=== PATIENT | female | born 1985 | race Two or more races ===

== ENCOUNTER 2025-03-16 15:11 | Emergency (ER) | payer OTHER ==
[~2025-03-16] VITALS: Ht 154.9 cm; Wt 49.9 kg
[2025-03-16] MEDS ORDERED: ONDANSETRON HCL 2 MG/ML VIAL IV ONE (17:45)
[2025-03-16] MEDS ORDERED: 0.9 % SODIUM CHLORIDE 1,000 ML IV ONE (17:45)
[2025-03-16] MEDS ORDERED: ONDANSETRON HCL 2 MG/ML VIAL ONE (19:21)
[2025-03-16 19:26] LABS: BASO % 0.2 % (0.1-1.2); EOS # 0.00 (0.04-0.54); EOS % 0.0 % (0.7-7.0); LYMPH # 1.83 (1.18-3.74); LYMPH % 9.4 % (19.3-53.1); MEAN PLATELET VOLUME 11.40 fl (9.4-12.4); MONO # 1.59 (0.24-0.82); MONO % 8.2 % (4.7-12.5); NEUT # 15.94 (1.56-6.13); NEUT % 81.7 % (34.0-71.1); RED CELL DISTRIBUTION WIDTH 14.0 % (11.6-14.4)
[2025-03-16 21:17] LABS: ALT/SGPT 25.0 U/L (12-78); AST/SGOT 15.0 U/L (15-37); BILIRUBIN TOTAL 0.94 mg/dL (0.3-1.2); BUN CREA RATIO 20.0 (7.0-25.0); CREATININE SERUM 0.61 mg/dL (0.55-1.02); GFR 109.77; GLOBULINA 2.7 G/DL (2.4-3.5); GLUCOSE FASTING 108.0 mg/dL (65-100); OSMOLALITY SERUM 282.0 MOSM/KG (275-295)
[2025-03-16] MEDS ORDERED: MORPHINE SULFATE 2 MG/ML SYRINGE IV ONE (23:00)
[2025-03-17 02:40] LABS: BASO % 0.2 % (0.1-1.2); EOS # 0.03 (0.04-0.54); EOS % 0.3 % (0.7-7.0); LYMPH # 2.71 (1.18-3.74); LYMPH % 23.0 % (19.3-53.1); MEAN PLATELET VOLUME 10.30 fl (9.4-12.4); MONO # 1.11 (0.24-0.82); MONO % 9.4 % (4.7-12.5); NEUT # 7.87 (1.56-6.13); NEUT % 66.8 % (34.0-71.1); RED CELL DISTRIBUTION WIDTH 12.9 % (11.6-14.4)
[2025-03-17] MEDS ORDERED: ONDANSETRON ODT8 MG PO (04:07)
[2025-03-17] MEDS ORDERED: TRANSDERM-SCOP1 EACH TD (04:07)
[2025-03-18] MEDS ORDERED: PEPCID AC20 MG PO (13:14)
[2025-03-18] MEDS ORDERED: ZOFRAN8 MG PO (13:14)
[2025-03-18] MEDS ORDERED: PROTONIX40 MG PO (13:14)
[2025-03-18] MEDS ORDERED: KLOR-CON M2020 MEQ PO (13:20)
== END 2025-03-17 04:50 | disposition home or self-care (01) ==
LOC: ER 15:12
PROVIDERS: Preventive Medicine Public Health & General Preventive Medicine
DX: N80.9 Endometriosis, unspecified (principal)

== ENCOUNTER 2025-03-17 10:46 | Emergency (ER) | payer OTHER ==
[~2025-03-17] VITALS: Ht 154.9 cm; Wt 49.9 kg
[~2025-03-17 10:46] MED LIST: ONDANSETRON ODT8 MG PO; TRANSDERM-SCOP1 EACH TD
[2025-03-17] MEDS ORDERED: PANTOPRAZOLE SODIUM 40 MG/VIAL VIAL IV PUSH STA (11:48)
[2025-03-17] MEDS ORDERED: ONDANSETRON HCL 2 MG/ML VIAL IV STA (11:49)
[2025-03-17] MEDS ORDERED: RINGERS SOLUTION,LACTATED 1,000 ML IV STA (11:49)
[2025-03-17] MEDS ORDERED: MORPHINE SULFATE 4 MG/ML CARTRIDGE IV STA (11:49)
[2025-03-17] MEDS ORDERED: ONDANSETRON HCL 2 MG/ML VIAL ONE ×2 (11:52→11:55)
[2025-03-17 12:22] LABS: BASO % 0.1 % (0.1-1.2); EOS # 0.01 (0.04-0.54); EOS % 0.1 % (0.7-7.0); LYMPH # 1.63 (1.18-3.74); LYMPH % 16.2 % (19.3-53.1); MEAN PLATELET VOLUME 10.60 fl (9.4-12.4); MONO # 0.78 (0.24-0.82); MONO % 7.8 % (4.7-12.5); NEUT # 7.62 (1.56-6.13); NEUT % 75.7 % (34.0-71.1); RED CELL DISTRIBUTION WIDTH 12.8 % (11.6-14.4)
[2025-03-17 12:56] LABS: ALT/SGPT 26.0 U/L (12-78); AST/SGOT 18.0 U/L (15-37); BILIRUBIN TOTAL 1.06 mg/dL (0.3-1.2); BUN CREA RATIO 16.0 (7.0-25.0); CREATININE SERUM 0.75 mg/dL (0.55-1.02); GFR 86.48; GLOBULINA 3.1 G/DL (2.4-3.5); GLUCOSE FASTING 110.0 mg/dL (65-100); OSMOLALITY SERUM 282.0 MOSM/KG (275-295)
[2025-03-17] MEDS ORDERED: POTASSIUM CHLORIDE IN WATER 40 MEQ/100 ML PIGGYBAG IV STA (13:08)
[2025-03-17] MEDS ORDERED: FAMOTIDINE/PF 20 MG/2 ML VIAL IV ONE (18:45)
[2025-03-17] MEDS ORDERED: PROMETHAZINE HCL 25 MG/ML AMPUL IM ONE (18:45)
[2025-03-17] MEDS ORDERED: PROMETHAZINE HCL 25 MG/ML AMPUL ONE (19:02)
[2025-03-17] MEDS ORDERED: FAMOTIDINE/PF 20 MG/2 ML VIAL ONE (19:03)
[2025-03-17] MEDS ORDERED: MORPHINE SULFATE 4 MG/ML CARTRIDGE IV ONE (20:45)
[2025-03-18 01:06] LABS: URINE APPEARANCE Turbid; URINE BILIRRUBIN Negative (NEGATIVE); URINE BLOOD Large; URINE COLOR Dark Yellow; URINE GLUCOSE Negative (NEGATIVE); URINE LEUKOCYTE Trace; URINE NITRATE Negative; URINE PROTEIN 30 (NEGATIVE); URINE UROBILINOGEN 1.0 E.U./dl
[2025-03-18 01:10] LABS: URINE BACTERIA 180.0 uL (0.0-1933); URINE CAST 1.46 uL (0.0-1.40); URINE EPITHELIAL CELLS 52.6 uL (0.0-38.8); URINE RBC 1688.5 uL (0.0-20.8); URINE WBC 53.8 uL (0.0-23.2)
[2025-03-18 01:42] LABS: URINE CRYSTALS MANY /HPF; URINE KETONE 40 (NEGATIVE)
[2025-03-18] MEDS ORDERED: MORPHINE SULFATE 4 MG/ML CARTRIDGE IV STA (07:29)
[2025-03-18] MEDS ORDERED: ONDANSETRON HCL 2 MG/ML VIAL ONE (07:59)
[2025-03-18 12:34] LABS: BUN CREA RATIO 22.0 (7.0-25.0); CREATININE SERUM 0.68 mg/dL (0.55-1.02); GFR 96.83; GLUCOSE FASTING 80.0 mg/dL (65-100); OSMOLALITY SERUM 288.0 MOSM/KG (275-295)
[2025-03-18] MEDS ORDERED: ZOFRAN8 MG PO (13:14)
[2025-03-18] MEDS ORDERED: PEPCID AC20 MG PO (13:14)
[2025-03-18] MEDS ORDERED: PROTONIX40 MG PO (13:14)
[2025-03-18] MEDS ORDERED: MORPHINE SULFATE 2 MG/ML SYRINGE IV ONE (13:15)
[2025-03-18] MEDS ORDERED: KLOR-CON M2020 MEQ PO (13:20)
[2025-03-18] MEDS ORDERED: DEXTROSE 50 % IN WATER 0.5 G/ML VIAL IV ONE ×2 (13:45→14:00)
== END 2025-03-18 15:28 | disposition home or self-care (01) ==
LOC: ER 10:46
PROVIDERS: General Practice
DX: R11.2 Nausea with vomiting, unspecified (principal); R10.9 Unspecified abdominal pain; N80.8 Other endometriosis; K29.70 Gastritis, unspecified, without bleeding

== ENCOUNTER 2025-05-11 07:45 | Inpatient (IN) | payer OTHER ==
[~2025-05-11] VITALS: Ht 154.9 cm; Wt 52.2 kg
[~2025-05-11 07:45] MED LIST changes: +KLOR-CON M2020 MEQ PO; +PEPCID AC20 MG PO; +PROTONIX40 MG PO; +ZOFRAN8 MG PO
[2025-05-12] MEDS ORDERED: NORETHIND-ETH1 EAC1 PO (12:37)
[2025-05-12] MEDS ORDERED: TRAZODONE HCL150 MG PO (12:37)
[2025-05-12 13:19] VITALS: BP 97/60
[2025-05-24] MEDS ORDERED: POVIDONE-IODINE 118 ML BOTT TOP ONE (06:57)
[2025-05-24] MEDS ORDERED: VISTASEAL DUAL APPICATOR 1 EACH APPL TOP ONE (06:57)
[2025-05-24] MEDS ORDERED: THROMBIN,HU/FIBRINOGEN/CALCIUM 10 ML SYRINGE TOP ONE (07:02)
[2025-05-24] MEDS ORDERED: CEFTRIAXONE SODIUM 2,000 MG VIAL IV ONE (09:00)
[2025-05-24] MEDS ORDERED: METRONIDAZOLE/SODIUM CHLORIDE 500 MG/100 ML PIGGYBACK IV ONE (09:00)
[2025-05-24] MEDS ORDERED: SUGAMMADEX SODIUM 200 MG/2 ML VIAL IV ONE (10:39)
[2025-05-24] MEDS ORDERED: KETOROLAC TROMETHAMINE 30 MG VIAL ONE (11:30)
[2025-05-24] MEDS ORDERED: ONDANSETRON HCL 2 MG/ML VIAL IV SCH (12:00)
[2025-05-24] MEDS ORDERED: ACETAMINOPHEN 325 MG TABLET PO SCH (12:00)
[2025-05-24] MEDS ORDERED: KETOROLAC TROMETHAMINE 30 MG VIAL IV SCH (12:00)
[2025-05-24] MEDS ORDERED: RINGERS SOLUTION,LACTATED 1,000 ML IV SCH (13:00)
[2025-05-24] MEDS ORDERED: GABAPENTIN 100 MG CAPSULE PO SCH (13:00)
[2025-05-24 13:10] LABS: BASO % 0.2 % (0.1-1.2); EOS # 0.01 (0.04-0.54); EOS % 0.1 % (0.7-7.0); LYMPH # 1.26 (1.18-3.74); LYMPH % 9.0 % (19.3-53.1); MEAN PLATELET VOLUME 10.40 fl (9.4-12.4); MONO # 0.69 (0.24-0.82); MONO % 5.0 % (4.7-12.5); NEUT # 11.89 (1.56-6.13); NEUT % 85.3 % (34.0-71.1); RED CELL DISTRIBUTION WIDTH 12.6 % (11.6-14.4)
[2025-05-24] MEDS ORDERED: ONDANSETRON HCL 2 MG/ML VIAL ONE (13:54)
[2025-05-24] MEDS ORDERED: ONDANSETRON HCL 2 MG/ML VIAL IV ONE (14:00)
[2025-05-24] MEDS ORDERED: MORPHINE SULFATE 4 MG/ML CARTRIDGE IV ONE (14:30)
[2025-05-24] MEDS ORDERED: ACETAMINOPHEN 325 MG TABLET PO ONE (15:27)
[2025-05-24] MEDS ORDERED: GABAPENTIN 100 MG CAPSULE PO ONE (15:27)
[2025-05-24 16:20] VITALS: BP 97/60
[2025-05-24 17:55] LABS: BASO % 0.2 % (0.1-1.2); EOS # 0.02 (0.04-0.54); EOS % 0.2 % (0.7-7.0); LYMPH # 1.87 (1.18-3.74); LYMPH % 14.6 % (19.3-53.1); MEAN PLATELET VOLUME 10.80 fl (9.4-12.4); MONO # 0.84 (0.24-0.82); MONO % 6.5 % (4.7-12.5); NEUT # 10.04 (1.56-6.13); NEUT % 78.2 % (34.0-71.1); RED CELL DISTRIBUTION WIDTH 12.6 % (11.6-14.4)
[2025-05-24 18:27] LABS: BUN CREA RATIO 15.0 (7.0-25.0); CREATININE SERUM 0.75 mg/dL (0.55-1.02); GFR 86.48; GLUCOSE FASTING 72.0 mg/dL (65-100); OSMOLALITY SERUM 285.0 MOSM/KG (275-295)
[2025-05-24] MEDS ORDERED: METOCLOPRAMIDE HCL 5 MG/ML VIAL IV PRN (20:00)
[2025-05-25 00:09] VITALS: BP 90/60
[2025-05-25 07:10] LABS: BASO % 0.3 % (0.1-1.2); EOS # 0.06 (0.04-0.54); EOS % 0.9 % (0.7-7.0); LYMPH # 1.64 (1.18-3.74); LYMPH % 23.4 % (19.3-53.1); MEAN PLATELET VOLUME 10.80 fl (9.4-12.4); MONO # 0.51 (0.24-0.82); MONO % 7.3 % (4.7-12.5); NEUT # 4.76 (1.56-6.13); NEUT % 68.0 % (34.0-71.1); RED CELL DISTRIBUTION WIDTH 12.8 % (11.6-14.4)
[2025-05-25 07:40] LABS: BUN CREA RATIO 12.0 (7.0-25.0); CREATININE SERUM 0.52 mg/dL (0.55-1.02); GFR 131.97; GLUCOSE FASTING 81.0 mg/dL (65-100); OSMOLALITY SERUM 283.0 MOSM/KG (275-295)
[2025-05-25 08:00] VITALS: BP 95/61
[2025-05-25] MEDS ORDERED: PATIENTS OWN MEDICATION (MEDICAMENTO EN PISO) PO SCH (09:00)
[2025-05-25 12:34] LABS: BASO % 0.3 % (0.1-1.2); EOS # 0.07 (0.04-0.54); EOS % 1.0 % (0.7-7.0); LYMPH # 1.77 (1.18-3.74); LYMPH % 24.1 % (19.3-53.1); MEAN PLATELET VOLUME 10.20 fl (9.4-12.4); MONO # 0.52 (0.24-0.82); MONO % 7.1 % (4.7-12.5); NEUT # 4.95 (1.56-6.13); NEUT % 67.4 % (34.0-71.1); RED CELL DISTRIBUTION WIDTH 12.7 % (11.6-14.4)
== END 2025-05-25 16:29 | disposition home or self-care (01) | DRG 743 ==
LOC: O/R 05-24 07:00 → SURG 05-24 07:00 → OB/GYN 05-24 13:27
PROVIDERS: Student in an Organized Health Care Education/Training Program; Surgery; Urology; ADMIT Obstetrics & Gynecology Gynecology; ATTEND Obstetrics & Gynecology Gynecology
PROC: 0DTJ4ZZ Resection of Appendix, Percutaneous Endoscopic Approach (ICD-10-PCS; 2025-05-24)
PROC: 4A1BXSH Monitoring of Gastrointestinal Vascular Perfusion using Indocyanine Green Dye, External Approach (ICD-10-PCS; 2025-05-24)
PROC: 0TJB8ZZ Inspection of Bladder, Via Natural or Artificial Opening Endoscopic (ICD-10-PCS; 2025-05-24)
PROC: 0UT94ZZ Resection of Uterus, Percutaneous Endoscopic Approach (ICD-10-PCS; principal; 2025-05-24 07:00)
PROC: 0UT54ZZ Resection of Right Fallopian Tube, Percutaneous Endoscopic Approach (ICD-10-PCS; 2025-05-24 07:00)
PROC: 0DNW4ZZ Release Peritoneum, Percutaneous Endoscopic Approach (ICD-10-PCS; 2025-05-24 07:00)
DX: D25.1 Intramural leiomyoma of uterus (principal); N80.03 Adenomyosis of the uterus; N72 Inflammatory disease of cervix uteri

== ENCOUNTER 2025-05-27 11:59 | Inpatient (IN) | payer OTHER ==
[~2025-05-27] VITALS: Ht 162.6 cm; Wt 54.4 kg
[~2025-05-27 11:59] MED LIST changes: +NORETHIND-ETH1 EAC1 PO; +TRAZODONE HCL150 MG PO
[2025-05-27] MEDS ORDERED: FAMOTIDINE/PF 20 MG/2 ML VIAL IV ONE (12:00)
[2025-05-27] MEDS ORDERED: 0.9 % SODIUM CHLORIDE 1,000 ML IV SCH (12:00)
[2025-05-27] MEDS ORDERED: ONDANSETRON HCL 2 MG/ML VIAL IV ONE (12:00)
[2025-05-27] MEDS ORDERED: KETOROLAC TROMETHAMINE 30 MG VIAL ONE ×3 (12:09→12:25)
[2025-05-27] MEDS ORDERED: ONDANSETRON HCL 2 MG/ML VIAL ONE ×3 (12:09→18:20)
[2025-05-27] MEDS ORDERED: DIATRIZOATE MEGLUMINE, SODIUM 30 ML BOTTLE ONE (12:10)
[2025-05-27] MEDS ORDERED: METOCLOPRAMIDE HCL 5 MG/ML VIAL ONE ×2 (12:10→12:14)
[2025-05-27] MEDS ORDERED: FAMOTIDINE/PF 20 MG/2 ML VIAL ONE ×3 (12:10→18:20)
[2025-05-27] MEDS ORDERED: METOCLOPRAMIDE HCL 5 MG/ML VIAL IV ONE (12:15)
[2025-05-27] MEDS ORDERED: DIATRIZOATE MEGLUMINE, SODIUM 30 ML BOTTLE PO ONE (12:15)
[2025-05-27] MEDS ORDERED: KETOROLAC TROMETHAMINE 30 MG VIAL IV ONE (12:15)
[2025-05-27 12:37] VITALS: O2SAT 97
--- NOTE | 2025-05-27 12:38 | NUR ---
SE RECIBE PACIENTE FEMENINA ALERTA Y ORIENTADA X 3 ESFERAS LA CUAL INDICA QUE EL MIERCOLES 05/24/25 EL LE REALIZO LYUDMILA HISTERECTOMIA Y LUEGO DEL PROCEDIMIENTO COMENZO CON DIARREAS, VOMITOS, DOLOR ABDOMINAL Y DEBILIDAD.
[2025-05-27 12:44] LABS: BASO % 0.1 % (0.1-1.2); EOS # 0.02 (0.04-0.54); EOS % 0.2 % (0.7-7.0); LYMPH # 1.94 (1.18-3.74); LYMPH % 18.7 % (19.3-53.1); MEAN PLATELET VOLUME 10.60 fl (9.4-12.4); MONO # 0.82 (0.24-0.82); MONO % 7.9 % (4.7-12.5); NEUT # 7.55 (1.56-6.13); NEUT % 72.8 % (34.0-71.1); RED CELL DISTRIBUTION WIDTH 12.3 % (11.6-14.4)
[2025-05-27 12:47] LABS: ERYTHROCYTE SEDIMENTATION RATE 13 mm/hr (0-20)
[2025-05-27 13:18] LABS: ALT/SGPT 35.0 U/L (12-78); AST/SGOT 28.0 U/L (15-37); BILIRUBIN TOTAL 0.54 mg/dL (0.3-1.2); BUN CREA RATIO 13.0 (7.0-25.0); CREATININE SERUM 0.69 mg/dL (0.55-1.02); GFR 95.22; GLOBULINA 3.6 G/DL (2.4-3.5); GLUCOSE FASTING 124.0 mg/dL (65-100); OSMOLALITY SERUM 279.0 MOSM/KG (275-295)
[2025-05-27] MEDS ORDERED: POTASSIUM CHLORIDE IN WATER 100 ML IV ONE (13:45)
[2025-05-27] MEDS ORDERED: FAMOTIDINE/PF 20 MG in 0.9 % SODIUM CHLORIDE 8 ML IV PUSH SCH (16:38)
[2025-05-27] MEDS ORDERED: KETOROLAC TROMETHAMINE 30 MG VIAL IU PRN (16:45)
[2025-05-27] MEDS ORDERED: ONDANSETRON HCL 4 MG in 0.9 % SODIUM CHLORIDE 50 ML IV PRN (16:45)
[2025-05-27] MEDS ORDERED: ACETAMINOPHEN 500 MG GEL..CAP PO PRN (16:45)
[2025-05-27] MEDS ORDERED: RINGERS SOLUTION,LACTATED 1,000 ML IV SCH (16:45)
[2025-05-27] MEDS ORDERED: PANTOPRAZOLE SODIUM 40 MG/VIAL VIAL IV PUSH SCH (18:22)
[2025-05-27] MEDS ORDERED: HYOSCYAMINE SULFATE 0.125 MG TAB.SUBL SL SCH (20:00)
[2025-05-28 03:05] VITALS: BP 114/73
[2025-05-28] MEDS ORDERED: METOCLOPRAMIDE HCL 5 MG/ML VIAL IV SCH (08:00)
[2025-05-28 08:13] LABS: INR 1.04
[2025-05-28 08:28] LABS: ALT/SGPT 28.0 U/L (12-78); AST/SGOT 16.0 U/L (15-37); BILIRUBIN TOTAL 0.46 mg/dL (0.3-1.2); BUN CREA RATIO 24.0 (7.0-25.0); CREATININE SERUM 0.49 mg/dL (0.55-1.02); GFR 141.34; GLOBULINA 2.6 G/DL (2.4-3.5); GLUCOSE FASTING 93.0 mg/dL (65-100); OSMOLALITY SERUM 281.0 MOSM/KG (275-295)
[2025-05-28 09:41] VITALS: BP 103/67
[2025-05-28 12:18] LABS: URINE APPEARANCE Clear; URINE BILIRRUBIN Negative (NEGATIVE); URINE BLOOD Large; URINE COLOR Yellow; URINE GLUCOSE Negative (NEGATIVE); URINE LEUKOCYTE Trace; URINE NITRATE Negative; URINE UROBILINOGEN 1.0 E.U./dl
[2025-05-28 12:22] LABS: URINE BACTERIA 19.4 uL (0.0-1933); URINE EPITHELIAL CELLS 11.0 uL (0.0-38.8); URINE RBC 514.1 uL (0.0-20.8); URINE WBC 32.4 uL (0.0-23.2)
[2025-05-28 12:33] LABS: URINE CAST 0.28 uL (0.0-1.40); URINE KETONE >=160 (NEGATIVE); URINE PROTEIN 100 (NEGATIVE)
[2025-05-28 16:40] VITALS: BP 116/66
[2025-05-28] MEDS ORDERED: SUCRALFATE 1 G TABLET PO SCH (17:00)
[2025-05-28] MEDS ORDERED: LORazepam 2 MG/ML VIAL IV ONE (19:15)
[2025-05-29 03:27] VITALS: BP 104/67
[2025-05-29 08:07] VITALS: BP 115/72
[2025-05-29] MEDS ORDERED: PROMETHAZINE HCL 25 MG/ML AMPUL IM NR (08:45)
[2025-05-29] MEDS ORDERED: MULTIVIT INFUSN,ADULT 4,VIT K 10 ML VIAL IV SCH (09:00)
[2025-05-29] MEDS ORDERED: MULTIVIT INFUSN,ADULT 4,VIT K 10 ML in DEXTROSE 5 % IN WATER 500 ML IV SCH (09:00)
[2025-05-29] MEDS ORDERED: POTASSIUM CHLORIDE/D5-0.45NACL 1,000 ML IV SCH (09:00)
[2025-05-29 10:20] LABS: BUN CREA RATIO 17.0 (7.0-25.0); CREATININE SERUM 0.52 mg/dL (0.55-1.02); GFR 131.97; GLUCOSE FASTING 100.0 mg/dL (65-100); OSMOLALITY SERUM 274.0 MOSM/KG (275-295)
[2025-05-29] MEDS ORDERED: ENOXAPARIN SODIUM 40 MG/0.4 ML SYRINGE SUBCUTANEO NR (12:00)
[2025-05-29] MEDS ORDERED: MAGNESIUM SULFATE/D5W 100 ML IV ONE (12:00)
[2025-05-29] MEDS ORDERED: KETOROLAC TROMETHAMINE 30 MG VIAL IV PRN (12:15)
[2025-05-29] MEDS ORDERED: POTASSIUM CHLORIDE 20MEQ/100ML H2O PB IV ONE (14:00)
[2025-05-29 16:13] VITALS: BP 104/66
[2025-05-29] MEDS ORDERED: CYCLOBENZAPRINE HCL 5 MG TABLET PO PRN (16:30)
[2025-05-29] MEDS ORDERED: HYOSCYAMINE SULFATE 0.125 MG TAB.SUBL SL SCH (17:00)
[2025-05-29] MEDS ORDERED: LORazepam 2 MG/ML VIAL IV ONE (17:30)
[2025-05-29] MEDS ORDERED: PROMETHAZINE HCL 25 MG/ML AMPUL IV SCH (18:00)
[2025-05-29] MEDS ORDERED: LORazepam 2 MG/ML VIAL IV SCH (21:00)
[2025-05-30] VITALS: BP 95/61
[2025-05-30 06:45] LABS: BASO % 0.3 % (0.1-1.2); EOS # 0.41 (0.04-0.54); EOS % 6.5 % (0.7-7.0); LYMPH # 2.54 (1.18-3.74); LYMPH % 40.6 % (19.3-53.1); MEAN PLATELET VOLUME 10.50 fl (9.4-12.4); MONO # 0.48 (0.24-0.82); MONO % 7.7 % (4.7-12.5); NEUT # 2.80 (1.56-6.13); NEUT % 44.7 % (34.0-71.1); RED CELL DISTRIBUTION WIDTH 12.1 % (11.6-14.4)
[2025-05-30 08:04] LABS: BUN CREA RATIO 10.0 (7.0-25.0); CREATININE SERUM 0.52 mg/dL (0.55-1.02); GFR 131.97; GLUCOSE FASTING 94.0 mg/dL (65-100); OSMOLALITY SERUM 282.0 MOSM/KG (275-295)
[2025-05-30] MEDS ORDERED: METOCLOPRAMIDE HCL 5 MG/ML VIAL IV PRN (08:42)
[2025-05-30 08:52] VITALS: BP 110/74
[2025-05-30] MEDS ORDERED: LORazepam 2 MG/ML VIAL IV SCH (09:00)
[2025-05-30] MEDS ORDERED: ENOXAPARIN SODIUM 40 MG/0.4 ML SYRINGE SUBCUTANEO SCH (09:00)
[2025-05-30] MEDS ORDERED: PATIENTS OWN MEDICATION (MEDICAMENTO EN PISO) PO SCH (09:07)
[2025-05-30] MEDS ORDERED: POTASSIUM CHLORIDE 20MEQ/100ML H2O PB IV ONE (10:00)
[2025-05-30] MEDS ORDERED: KETOROLAC TROMETHAMINE 30 MG VIAL IM NR (15:45)
[2025-05-30 17:37] VITALS: BP 100/65
[2025-05-30] MEDS ORDERED: TRAZODONE HCL 50 MG TABLET PO SCH (21:00)
[2025-05-31] VITALS: BP 95/62
[2025-05-31 08:00] VITALS: BP 103/70
[2025-05-31 10:07] LABS: URINE APPEARANCE Clear; URINE BILIRRUBIN Negative (NEGATIVE); URINE BLOOD Moderate; URINE COLOR Yellow; URINE GLUCOSE Negative (NEGATIVE); URINE KETONE Negative (NEGATIVE); URINE LEUKOCYTE Negative; URINE NITRATE Negative; URINE PROTEIN Negative (NEGATIVE); URINE UROBILINOGEN 0.2 E.U./dl
[2025-05-31 10:10] LABS: URINE BACTERIA 4.5 uL (0.0-1933); URINE EPITHELIAL CELLS 6.7 uL (0.0-38.8); URINE RBC 93.9 uL (0.0-20.8); URINE WBC 4.1 uL (0.0-23.2)
[2025-05-31 10:24] LABS: URINE CAST 0.00 uL (0.0-1.40)
== END 2025-05-31 15:48 | disposition home or self-care (01) | DRG 392 ==
LOC: ER 11:59 → OB/GYN 17:21 → SEC-K 17:21 → OB/GYN 18:28
PROVIDERS: General Practice; Internal Medicine Geriatric Medicine; Student in an Organized Health Care Education/Training Program; Surgery; ADMIT Student in an Organized Health Care Education/Training Program; ATTEND Student in an Organized Health Care Education/Training Program
PROC: BW21YZZ Computerized Tomography (CT Scan) of Abdomen and Pelvis using Other Contrast (ICD-10-PCS; principal; 2025-05-27)
DX: R11.2 Nausea with vomiting, unspecified (principal)